=== PATIENT | female | born 1970 | race Hispanic/Latino ===

== ENCOUNTER 2022-03-28 08:12 | Day surgery (SDC) | payer OTHER ==
[~2022-03-28] VITALS: Ht 157.5 cm; Wt 66.7 kg
[2022-03-28] VITALS (9 sets, daily range): BP systolic 120–141; BP diastolic 80–94
[2022-03-28] MEDS ORDERED: 0.9%NACL 1000ML 1,000 ML IV ONE (09:45)
[2022-03-28] MEDS ORDERED: MULT-1367 PO (10:45)
[2022-03-28] MEDS ORDERED: PANT40TA55 PO (10:45)
[2022-03-28] MEDS ORDERED: VITA-348 PO (10:45)
[2022-03-28] MEDS ORDERED: HYDR-3830 PO (10:45)
[2022-03-28] MEDS ORDERED: CALC-866 PO (10:45)
[2022-03-28] MEDS ORDERED: AMOX500T2 PO (10:45)
[2022-03-28] MEDS ORDERED: METO50TA18 PO (10:45)
[2022-03-28] MEDS ORDERED: CLAR-44 PO (10:45)
[2022-03-28] MEDS ORDERED: ASPI-1443 PO (10:45)
[2022-03-28] MEDS ORDERED: ALBU6.7H14 IH (10:45)
[2022-03-28] MEDS ORDERED: MONT-39 PO (10:45)
[2022-03-28] MEDS ORDERED: ASCO100031 PO (10:45)
[2022-03-28] MEDS ORDERED: ZINC50TA64 PO (10:45)
[2022-03-28] MEDS ORDERED: PREM3 PO (10:45)
[2022-03-28] MEDS ORDERED: ATOR20TA65 PO (10:45)
[2022-03-28] MEDS ORDERED: MIDAZOLAM HCL 1 MG/ML 2ML VIAL ONE (12:34)
[2022-03-28] MEDS ORDERED: FENTANYL CITRATE PF 50 MCG/1 ML 2ML VIAL ONE (12:35)
[2022-03-28] MEDS ORDERED: PROPOFOL 10 MG/ML 20ML VIAL IV ONE (12:54)
== END 2022-03-28 14:10 | disposition home or self-care (01) ==
LOC: DAH 08:12 → ENDO 08:12
PROVIDERS: ATTEND Internal Medicine Gastroenterology
DX: R10.13 Epigastric pain (principal); Z20.822 Contact with and (suspected) exposure to COVID-19; K21.00 Gastro-esophageal reflux disease with esophagitis, without bleeding; R19.7 Diarrhea, unspecified; K29.50 Unspecified chronic gastritis without bleeding; K76.0 Fatty (change of) liver, not elsewhere classified; K64.1 Second degree hemorrhoids; E78.5 Hyperlipidemia, unspecified; K76.89 Other specified diseases of liver; Z87.19 Personal history of other diseases of the digestive system; Z80.0 Family history of malignant neoplasm of digestive organs; Z79.82 Long term (current) use of aspirin; Z79.899 Other long term (current) drug therapy; Z86.16 Personal history of COVID-19; Z98.890 Other specified postprocedural states; Z90.710 Acquired absence of both cervix and uterus; Z98.891 History of uterine scar from previous surgery; Z82.49 Family history of ischemic heart disease and other diseases of the circulatory system; Z83.3 Family history of diabetes mellitus; Z82.5 Family history of asthma and other chronic lower respiratory diseases; Z80.51 Family history of malignant neoplasm of kidney
CPT/HCPCS: 87635; 43239; C9803; J7030 ×2; J2250; J2704; A4620; A4215 ×2; A4223; A4222; A4221; A4663; A4216; A4606; J3010

== ENCOUNTER 2022-08-25 02:45 | Emergency (ER) | payer OTHER ==
[~2022-08-25] VITALS: Ht 157.5 cm; Wt 69.9 kg
[~2022-08-25 02:45] MED LIST: ALBU6.7H14 IH; AMOX500T2 PO; ASCO100031 PO; ASPI-1443 PO; ATOR20TA65 PO; CALC-866 PO; CLAR-44 PO; HYDR-3830 PO; METO50TA18 PO; MONT-39 PO; MULT-1367 PO; PREM3 PO; VITA-348 PO; ZINC50TA64 PO
[2022-08-25 03:30] LABS: APPEARANCE,URINE CLEAR (CLEAR); BILIRUBIN,URINE NEGATIVE (NEGATIVE); COLOR,URINE LIGHT-YELLOW (YELLOW); GLUCOSE, URINE (UA) NEGATIVE (NEGATIVE); KETONES,URINE NEGATIVE (NEGATIVE); LEUKOCYTE ESTERASE ,URINE NEGATIVE Leu/uL (NEGATIVE); NITRATE,URINE NEGATIVE (NEGATIVE); OCCULT BLOOD,URINE NEGATIVE (NEGATIVE); PROTEIN,URINE NEGATIVE (NEGATIVE); UROBILINOGEN,URINE 0.2 mg/dL (0.2-1.0)
[2022-08-25 03:33] LABS: BASOPHILS % (AUTO) 0.1 % (0.0-5.0); LYMPHOCYTES % (AUTO) 13.4 % (21.0-51.0); MEAN CORPUSCULAR HEMOGLOBIN 29.9 pg (27.0-33.0); MEAN CORPUSCULAR VOLUME 90.7 fL (79-99); PLATELET COUNT (AUTO) 296 K/uL (130-400); RED BLOOD CELL COUNT(AUTO) 4.41 MIL/uL (4.00-5.50); RED CELL DISTRIBUTION WIDTH 14.3 % (11.0-15.5); WHITE BLOOD COUNT (AUTO) 17.7 K/uL (4.8-10.8)
[2022-08-25 03:42] LABS: CREATININE 0.9 mg/dL (0.5-1.5); POTASSIUM 3.8 mmol/L (3.5-5.1)
[2022-08-25 03:47] LABS: ALBUMIN 4.1 g/dL (3.5-5.0); TOTAL PROTEIN, SERUM 7.7 g/dL (6.0-8.3)
[2022-08-25] MEDS ORDERED: PROC5TAB54 PO (04:48)
[2022-08-25] MEDS ORDERED: PROCHLORPERAZINE 10MG/2ML INJ IV ONE (05:00)
[2022-08-25] MEDS ORDERED: DiphenhydrAMINE HCL 50 MG/ML VIAL IV ONE (05:00)
[2022-08-25 05:17] VITALS: BP 124/72
== END 2022-08-25 05:32 | disposition home or self-care (01) ==
LOC: EDH 02:45
DX: G43.909 Migraine, unspecified, not intractable, without status migrainosus (principal); I10 Essential (primary) hypertension; E78.00 Pure hypercholesterolemia, unspecified; F41.9 Anxiety disorder, unspecified; Z79.82 Long term (current) use of aspirin; Z79.899 Other long term (current) drug therapy; Z98.890 Other specified postprocedural states
CPT/HCPCS: 99285; 96374; 70450; 96375; 80053; 85025; 81003; 36415; J1200; J0780

== ENCOUNTER 2023-07-04 16:56 | Emergency (ER) | payer BC, OTHER ==
[~2023-07-04] VITALS: Ht 152.4 cm; Wt 63.0 kg
[~2023-07-04 16:56] MED LIST changes: +PROC5TAB54 PO
[2023-07-04 20:30] LABS: APPEARANCE,URINE CLEAR (CLEAR); BILIRUBIN,URINE NEGATIVE (NEGATIVE); COLOR,URINE YELLOW (YELLOW); GLUCOSE, URINE (UA) NEGATIVE (NEGATIVE); KETONES,URINE NEGATIVE (NEGATIVE); LEUKOCYTE ESTERASE ,URINE NEGATIVE Leu/uL (NEGATIVE); NITRATE,URINE NEGATIVE (NEGATIVE); OCCULT BLOOD,URINE NEGATIVE (NEGATIVE); PROTEIN,URINE 10 mg/dL (NEGATIVE); UROBILINOGEN,URINE 0.2 mg/dL (0.2-1.0)
[2023-07-04 20:32] LABS: ADD UA MICROSCOPIC YES
[2023-07-04 20:36] LABS: RAPID GROUP A STREP negative (NEGATIVE)
[2023-07-04 20:38] LABS: SARS-CoV-2, RNA, NAAT NEGATIVE SARS CoV-2 (NEGATIVE)
[2023-07-04 20:43] LABS: INFLUENZA TYPE A Negative For Type A (NEGATIVE); INFLUENZA TYPE B Negative For Type B (NEGATIVE)
[2023-07-04 20:46] LABS: BACTERIA,URINE RARE /HPF (None Seen); MUCUS,URINE FEW LPF (None Seen); SQUAMOUS EPITHELIAL CELL,UR MOD /HPF (0-2); YEAST,URINE BUDDING RARE /HPF (None Seen)
[2023-07-04] MEDS ORDERED: AZIT250T9 PO (21:03)
[2023-07-04] MEDS ORDERED: GUAI400T94 PO (21:03)
[2023-07-04] MEDS ORDERED: ALBU90AE2 IH (21:03)
[2023-07-04] MEDS ORDERED: BENZ200C53 PO (21:03)
[2023-07-04 21:35] VITALS: BP 124/76; PULSE 78; RESP 24
== END 2023-07-04 21:36 | disposition home or self-care (01) ==
LOC: EDH 16:56
DX: J20.9 Acute bronchitis, unspecified (principal); Z20.822 Contact with and (suspected) exposure to COVID-19
CPT/HCPCS: 71045; 81001; 87635; 87804; 87880